=== PATIENT | female | born 1955 | race Caucasian/White ===

== ENCOUNTER 2017-05-31 03:08 | Inpatient (IN) | payer OTHER ==
[2017-05-31 03:31] LABS: URINE BLOOD (Dip) POC 2+ (NEGATIVE); URINE GLUCOSE (Dip) POC Negative (NEGATIVE); URINE KETONES (Dip) POC Negative (NEGATIVE); URINE LEUKOCYTE EST (Dip) POC 3+ (NEGATIVE); URINE NITRITE (Dip) POC Negative (NEGATIVE); URINE TOTAL PROTEIN POC 1+ (NEGATIVE)
[2017-05-31] MEDS: SOD CHLORIDE 0.9% 1,000 ML IV (03:44)
[2017-05-31] MEDS: ONDANSETRON 4 MG INJ IV (03:44)
[2017-05-31] MEDS: morphine 4 MG/ML VIAL IV (03:44)
[2017-05-31] MEDS: HYDROmorphONE 1 MG/ML SYG IV ×2 (04:11→06:14)
[2017-05-31 04:12] LABS: ADD MAN DIFF? NO
[2017-05-31 04:14] LABS: WHITE BLOOD COUNT 13.4 10^3/ul (4.8-10.8)
[2017-05-31 04:14] LABS: BASOPHILS % 0.1 % (0.0-2.0); EOSINOPHILS # 0.8 10^3/ul (0.0-0.5); EOSINOPHILS % 5.9 % (0.0-7.0); HEMATOCRIT 40.2 % (37.0-47.0); HEMOGLOBIN 13.8 g/dl (12.0-16.0); LYMPHOCYTES # 1.6 10^3/ul (0.8-2.9); LYMPHOCYTES % 12.1 % (15.0-51.0); MEAN CORPUSCULAR HGB CONC 34.3 g/dl (32.0-37.0); MEAN CORPUSCULAR VOLUME 96.2 fl (82.0-101.0); MEAN PLATELET VOLUME 9.9 fl (7.4-10.4); MONOCYTE # 0.8 10^3/ul (0.3-0.9); MONOCYTES % 5.6 % (0.0-11.0); NEUTROPHIL # 10.1 10^3/ul (1.6-7.5); NEUTROPHILS % 75.8 % (39.0-77.0); PLATELET COUNT 236 10^3/UL (140-415); RED BLOOD COUNT 4.18 10^6/ul (4.20-5.40); RED CELL DISTRIBUTION WIDTH 11.9 % (11.5-14.5)
[2017-05-31 04:21] LABS: ADD UMIC YES; UR ASCORBIC ACID 40 mg/dL (NEGATIVE); UR BACTERIA FEW /HPF (NONE SEEN); UR BILIRUBIN (Dip) NEGATIVE (NEGATIVE); UR BLOOD (Dip) NEGATIVE (NEGATIVE); UR CLARITY CLOUDY (CLEAR); UR COLOR YELLOW (YELLOW); UR GLUCOSE (Dip) NEGATIVE (NEGATIVE); UR KETONES (Dip) NEGATIVE (NEGATIVE); UR LEUKOCYTE ESTERASE (Dip) 3+ Leu/ul (NEGATIVE); UR MUCUS FEW /HPF (NONE SEEN); UR NITRITE (Dip) NEGATIVE (NEGATIVE); UR RBC 18 /HPF (0-5); UR SQUAMOUS EPITHELIAL CELL FEW /HPF (FEW); UR TOTAL PROTEIN (Dip) 1+ mg/dl (NEGATIVE); UR UROBILINOGEN (Dip) 1+ mg/dL (NEGATIVE); UR WBC > 182 /HPF (0-5)
[2017-05-31 04:42] LABS: ALANINE AMINOTRANSFERASE 26 IU/L (13-69); ALBUMIN 4.4 g/dl (3.3-4.9); ALBUMIN/GLOBULIN RATIO 1.18; ALKALINE PHOSPHATASE 154 IU/L (42-121); ANION GAP 15 (8-16); ASPARTATE AMINO TRANSFERASE 24 IU/L (15-46); BILIRUBIN,INDIRECT 0.4 mg/dl (0-1.1); BILIRUBIN,TOTAL 0.4 mg/dl (0.2-1.3); BLOOD UREA NITROGEN 15 mg/dl (7-20); CALCIUM 9.3 mg/dl (8.4-10.2); CARBON DIOXIDE 29 mmol/L (21-31); CHLORIDE 100 mmol/L (97-110); CREATININE 0.87 mg/dl (0.44-1.00); GLUCOSE 177 mg/dl (70-220); LIPASE 36 U/L (23-300); POTASSIUM 3.9 mmol/L (3.5-5.1); SODIUM 140 mmol/L (135-144); TOTAL PROTEIN 8.1 g/dl (6.1-8.1)
[2017-05-31 04:43] LABS: LACTIC ACID 2.3 mmol/L (0.5-2.0)
[2017-05-31] MEDS: KETOROLAC 30 MG INJ IV (04:51)
[2017-05-31] MEDS: CEFTRIAXONE 1 GM/50 ML (PMX) 50 ML IVPB (05:17)
[2017-05-31] MEDS ORDERED: ONDANSETRON 4 MG INJ IV ×2 (06:00→10:30)
[2017-05-31] MEDS ORDERED: ACETAMINOPHEN 325 MG TAB PO (06:00)
[2017-05-31] MEDS: SODIUM CHLORIDE 0.9% 1L BAG IV* (06:14)
[2017-05-31 06:40] LABS: LACTIC ACID 1.9 mmol/L (0.5-2.0)
[2017-05-31] MEDS ORDERED: HYDROCODONE/APAP (5/325) TAB PO (10:30)
[2017-05-31] MEDS ORDERED: morphine 2 MG INJ IV (10:30)
[2017-05-31] MEDS ORDERED: ZOLPIDEM 5 MG TAB PO (10:30)
[2017-05-31 11:32] LABS: LACTIC ACID 1.3 mmol/L (0.5-2.0)
[2017-05-31 11:35] LABS: INR 1.03; PROTIME 13.6 Sec (11.9-14.9); PT RATIO 1.1
[2017-05-31 11:36] LABS: PARTIAL THROMBOPLASTIN TIME 29.3 Sec (25.0-35.0)
[2017-05-31] MEDS: DEXTROSE 5%-0.45% NACL 1,000 ML IV ×3 (12:09→21:14)
[2017-05-31] MEDS ORDERED: PENDING SANTYL ORDER FOR WOUND CARE XX (13:00)
[2017-05-31] MEDS: ACETAMINOPHEN 325 MG TAB PO (17:45)
[2017-05-31] MEDS: ATORVASTATIN 10 MG TAB PO (21:14)
[2017-05-31] MEDS: FAMOTIDINE 20 MG INJ IV (21:14)
[2017-05-31] MEDS: MONTELUKAST 10 MG TAB PO (21:14)
[2017-06-01] MEDS: DEXTROSE 5%-0.45% NACL 1,000 ML IV ×3 (02:10→18:10)
[2017-06-01] MEDS: ACETAMINOPHEN 325 MG TAB PO ×2 (02:38→08:20)
[2017-06-01] MEDS: CEFTRIAXONE 1 GM/50 ML (PMX) 50 ML IVPB (05:15)
[2017-06-01 06:13] LABS: ADD MAN DIFF? NO
[2017-06-01 06:36] LABS: WHITE BLOOD COUNT 9.4 10^3/ul (4.8-10.8)
[2017-06-01 06:36] LABS: BASOPHILS % 0.2 % (0.0-2.0); EOSINOPHILS # 0.2 10^3/ul (0.0-0.5); EOSINOPHILS % 1.9 % (0.0-7.0); HEMATOCRIT 34.3 % (37.0-47.0); HEMOGLOBIN 11.4 g/dl (12.0-16.0); LYMPHOCYTES # 0.6 10^3/ul (0.8-2.9); LYMPHOCYTES % 6.6 % (15.0-51.0); MEAN CORPUSCULAR HEMOGLOBIN 32.9 pg (29.0-33.0); MEAN CORPUSCULAR HGB CONC 33.2 g/dl (32.0-37.0); MEAN CORPUSCULAR VOLUME 98.8 fl (82.0-101.0); MEAN PLATELET VOLUME 10.1 fl (7.4-10.4); MONOCYTE # 0.5 10^3/ul (0.3-0.9); NEUTROPHILS % 85.8 % (39.0-77.0); PLATELET COUNT 130 10^3/UL (140-415); RED BLOOD COUNT 3.47 10^6/ul (4.20-5.40); RED CELL DISTRIBUTION WIDTH 12.7 % (11.5-14.5)
[2017-06-01 07:22] LABS: HEMOGLOBIN A1C 5.4 % (0-5.9)
[2017-06-01 07:28] LABS: ALANINE AMINOTRANSFERASE 48 IU/L (13-69); ALBUMIN 2.9 g/dl (3.3-4.9); ALBUMIN/GLOBULIN RATIO 0.87; ALKALINE PHOSPHATASE 131 IU/L (42-121); ANION GAP 9 (8-16); ASPARTATE AMINO TRANSFERASE 48 IU/L (15-46); BILIRUBIN,INDIRECT 0.6 mg/dl (0-1.1); BILIRUBIN,TOTAL 0.6 mg/dl (0.2-1.3); BLOOD UREA NITROGEN 14 mg/dl (7-20); CALCIUM 8.2 mg/dl (8.4-10.2); CARBON DIOXIDE 27 mmol/L (21-31); CHLORIDE 106 mmol/L (97-110); CHOL/HDL RATIO 3.1 RATIO; CHOLESTEROL 90 mg/dl (100-200); GLUCOSE 137 mg/dl (70-220); HDL CHOLESTEROL 29 mg/dl (35-98); LDL CHOLESTEROL,CALCULATED 45 mg/dl; MAGNESIUM 1.6 mg/dl (1.7-2.5); PHOSPHORUS 3.1 mg/dl (2.5-4.9); POTASSIUM 4.1 mmol/L (3.5-5.1); SODIUM 138 mmol/L (135-144); TOTAL PROTEIN 6.2 g/dl (6.1-8.1); TRIGLYCERIDES 82 mg/dl (0-149)
[2017-06-01] MEDS: LEVOTHYROXINE 100 MCG TAB PO (08:20)
[2017-06-01] MEDS: FAMOTIDINE 20 MG INJ IV ×2 (08:20→20:24)
[2017-06-01] MEDS ORDERED: MIDAZOLAM 1 MG/ML 2 ML INJ (17:23)
[2017-06-01] MEDS ORDERED: CEFAZOLIN 1 GM INJ (17:23)
[2017-06-01] MEDS ORDERED: PROPOFOL 20 ML (17:23)
[2017-06-01] MEDS ORDERED: ROCURONIUM 50 MG INJ (17:23)
[2017-06-01] MEDS ORDERED: FENTAnyl 50 MCG/ML VIAL (17:23)
[2017-06-01] MEDS ORDERED: MEROPENEM 1 GM/50ML(PMX) 50 ML IVPB (17:30)
[2017-06-01] MEDS ORDERED: IOHEXOL 300MG/ML 30 ML BTL (17:45)
[2017-06-01] MEDS ORDERED: SUGAMMADEX SODIUM 200 MG/2 ML VIAL IV (18:20)
[2017-06-01] MEDS ORDERED: METOCLOPRAMIDE 10 MG INJ (18:20)
[2017-06-01] MEDS ORDERED: DEXAMETHASONE 4 MG/ML 1 ML INJ (18:20)
[2017-06-01] MEDS ORDERED: ONDANSETRON 4 MG INJ (18:20)
[2017-06-01] MEDS ORDERED: KETOROLAC 30 MG INJ (18:20)
[2017-06-01] MEDS ORDERED: MEPERIDINE 100 MG INJ (18:25)
[2017-06-01] MEDS ORDERED: MEPERIDINE 25 MG INJ IV (18:30)
[2017-06-01] MEDS ORDERED: hydrALAzine 20 MG INJ IV (18:30)
[2017-06-01] MEDS ORDERED: DIPHENHYDRAMINE 50 MG INJ IV (18:30)
[2017-06-01] MEDS ORDERED: LABETALOL HCL 20MG INJ IV (18:30)
[2017-06-01] MEDS ORDERED: ALBUMIN HUMAN 5% 250 ML IV (18:30)
[2017-06-01] MEDS ORDERED: ONDANSETRON 4 MG INJ IV (18:30)
[2017-06-01] MEDS ORDERED: EPHEDrine SULFATE 50 MG/5 ML SYG IV (18:30)
[2017-06-01] MEDS ORDERED: METOCLOPRAMIDE 10 MG INJ IV (18:30)
[2017-06-01] MEDS ORDERED: morphine (1 MG/ML) 10ML SYRINGE IV ×3 (18:30)
[2017-06-01] MEDS ORDERED: FENTAnyl 50 MCG/ML VIAL IV ×3 (18:30)
[2017-06-01] MEDS ORDERED: NALOXONE (0.4 MG/ML) INJ (18:33)
[2017-06-01] MEDS: ACETAMINOPHEN 1000MG/100ML IV 100 ML IVPB (19:28)
[2017-06-01] MEDS: CEFEPIME 1GM/50 ML (PMX) 50 ML IVPB (20:24)
[2017-06-01] MEDS: ATORVASTATIN 10 MG TAB PO (20:24)
[2017-06-01] MEDS: MONTELUKAST 10 MG TAB PO (20:24)
[2017-06-01] MEDS: MAGNESIUM SULFATE 2 GM/50 ML 50 ML IVPB (21:26)
[2017-06-02] MEDS: DEXTROSE 5%-0.45% NACL 1,000 ML IV ×5 (02:10→19:11)
[2017-06-02 06:24] LABS: ADD MAN DIFF? NO
[2017-06-02 06:33] LABS: WHITE BLOOD COUNT 5.8 10^3/ul (4.8-10.8)
[2017-06-02 06:33] LABS: ABNORMAL IP MESSAGE 1; BASOPHILS % 0.3 % (0.0-2.0); EOSINOPHILS % 0.2 % (0.0-7.0); HEMATOCRIT 32.5 % (37.0-47.0); HEMOGLOBIN 10.7 g/dl (12.0-16.0); LYMPHOCYTES # 0.5 10^3/ul (0.8-2.9); LYMPHOCYTES % 9.2 % (15.0-51.0); MEAN CORPUSCULAR HEMOGLOBIN 32.5 pg (29.0-33.0); MEAN CORPUSCULAR HGB CONC 32.9 g/dl (32.0-37.0); MEAN CORPUSCULAR VOLUME 98.8 fl (82.0-101.0); MEAN PLATELET VOLUME 10.8 fl (7.4-10.4); MONOCYTE # 0.2 10^3/ul (0.3-0.9); MONOCYTES % 3.5 % (0.0-11.0); NEUTROPHILS % 86.5 % (39.0-77.0); PLATELET COUNT 108 10^3/UL (140-415); RED BLOOD COUNT 3.29 10^6/ul (4.20-5.40); RED CELL DISTRIBUTION WIDTH 12.6 % (11.5-14.5)
[2017-06-02] MEDS: LEVOTHYROXINE 100 MCG TAB PO (06:33)
[2017-06-02 06:56] LABS: POSITIVE DIFF @See below
[2017-06-02 07:34] LABS: ANION GAP 14 (8-16); BLOOD UREA NITROGEN 15 mg/dl (7-20); CALCIUM 8.5 mg/dl (8.4-10.2); CARBON DIOXIDE 26 mmol/L (21-31); CHLORIDE 109 mmol/L (97-110); CREATININE 0.75 mg/dl (0.44-1.00); GLUCOSE 236 mg/dl (70-220); MAGNESIUM 2.6 mg/dl (1.7-2.5); POTASSIUM 4.1 mmol/L (3.5-5.1); SODIUM 145 mmol/L (135-144)
[2017-06-02] MEDS: FAMOTIDINE 20 MG INJ IV ×2 (08:44→20:40)
[2017-06-02] MEDS: CEFEPIME 1GM/50 ML (PMX) 50 ML IVPB (16:39)
[2017-06-02] MEDS: ATORVASTATIN 10 MG TAB PO (20:40)
[2017-06-02] MEDS: MONTELUKAST 10 MG TAB PO (20:40)
[2017-06-03] MEDS: DOCUSATE SODIUM 100 MG CAP PO (02:14)
[2017-06-03] MEDS: DEXTROSE 5%-0.45% NACL 1,000 ML IV ×2 (05:59→08:31)
[2017-06-03] MEDS: LEVOTHYROXINE 100 MCG TAB PO (05:59)
[2017-06-03 06:09] LABS: ADD MAN DIFF? NO
[2017-06-03 06:15] LABS: BASOPHILS % 0.3 % (0.0-2.0); EOSINOPHILS # 0.2 10^3/ul (0.0-0.5); EOSINOPHILS % 2.5 % (0.0-7.0); HEMOGLOBIN 10.3 g/dl (12.0-16.0); LYMPHOCYTES # 1.1 10^3/ul (0.8-2.9); LYMPHOCYTES % 16.8 % (15.0-51.0); MEAN CORPUSCULAR HEMOGLOBIN 32.4 pg (29.0-33.0); MEAN CORPUSCULAR HGB CONC 33.2 g/dl (32.0-37.0); MEAN CORPUSCULAR VOLUME 97.5 fl (82.0-101.0); MEAN PLATELET VOLUME 10.6 fl (7.4-10.4); MONOCYTE # 0.4 10^3/ul (0.3-0.9); MONOCYTES % 6.5 % (0.0-11.0); NEUTROPHIL # 4.6 10^3/ul (1.6-7.5); NEUTROPHILS % 73.7 % (39.0-77.0); PLATELET COUNT 166 10^3/UL (140-415); RED BLOOD COUNT 3.18 10^6/ul (4.20-5.40); RED CELL DISTRIBUTION WIDTH 12.7 % (11.5-14.5)
[2017-06-03 06:15] LABS: WHITE BLOOD COUNT 6.3 10^3/ul (4.8-10.8)
[2017-06-03 06:53] LABS: ALANINE AMINOTRANSFERASE 62 IU/L (13-69); ALBUMIN 3.1 g/dl (3.3-4.9); ALKALINE PHOSPHATASE 153 IU/L (42-121); ANION GAP 14 (8-16); ASPARTATE AMINO TRANSFERASE 44 IU/L (15-46); BILIRUBIN,INDIRECT 0.1 mg/dl (0-1.1); BILIRUBIN,TOTAL 0.1 mg/dl (0.2-1.3); BLOOD UREA NITROGEN 11 mg/dl (7-20); CALCIUM 8.4 mg/dl (8.4-10.2); CARBON DIOXIDE 27 mmol/L (21-31); CHLORIDE 107 mmol/L (97-110); CREATININE 0.65 mg/dl (0.44-1.00); GLUCOSE 142 mg/dl (70-220); MAGNESIUM 1.8 mg/dl (1.7-2.5); PHOSPHORUS 1.9 mg/dl (2.5-4.9); SODIUM 144 mmol/L (135-144); TOTAL PROTEIN 6.2 g/dl (6.1-8.1)
[2017-06-03] MEDS: FAMOTIDINE 20 MG INJ IV ×2 (08:42→20:23)
[2017-06-03] MEDS: LEVOFLOXACIN 500 MG TAB PO (12:43)
[2017-06-03] MEDS: ATORVASTATIN 10 MG TAB PO (20:23)
[2017-06-03] MEDS: MONTELUKAST 10 MG TAB PO (20:23)
[2017-06-04] MEDS: LEVOTHYROXINE 100 MCG TAB PO (06:08)
[2017-06-04] MEDS: LEVOFLOXACIN 500 MG TAB PO (06:08)
[2017-06-04] MEDS: FAMOTIDINE 20 MG TAB PO (10:07)
== END 2017-06-04 17:25 | disposition home or self-care (01) | DRG 690 ==
LOC: E/R 03:08 → MS2 05:50
PROVIDERS: Internal Medicine
PROC: 0T778DZ Dilation of Left Ureter with Intraluminal Device, Via Natural or Artificial Opening Endoscopic (ICD-10-PCS; principal; 2017-06-01 17:30)
DX: N13.6 Pyonephrosis (principal); E87.2 Acidosis; K76.0 Fatty (change of) liver, not elsewhere classified; N30.90 Cystitis, unspecified without hematuria; E83.42 Hypomagnesemia; E03.9 Hypothyroidism, unspecified; E78.5 Hyperlipidemia, unspecified; L30.9 Dermatitis, unspecified
CPT/HCPCS: 36415; 71045; 71250; 74018; 74176; 74430; 80048; 80053; 80061; 81001; 81003; 83036; 83605; 83690; 83735; 84100; 84443; 85025; 85610; 85730; 87040; 87086; 93005; 96374; 96375; 96376; 99285-25

== ENCOUNTER 2017-08-04 09:54 | Day surgery (SDC) | payer OTHER ==
[2017-08-04] MEDS: CIPROFLOXACIN 400MG/D5W 200 ML IVPB (11:35)
[2017-08-04] MEDS ORDERED: ONDANSETRON 4 MG INJ IV ×2 (13:00→15:00)
[2017-08-04] MEDS ORDERED: HYDROmorphONE (0.2 MG/ML) 10ML SYG IV ×3 (13:00)
[2017-08-04] MEDS ORDERED: OXYCODONE/ACETAMINOPHEN (5/325) TAB PO ×2 (13:00)
[2017-08-04] MEDS ORDERED: MIDAZOLAM 1 MG/ML 2 ML INJ (13:05)
[2017-08-04] MEDS ORDERED: PROPOFOL 20 ML (13:05)
[2017-08-04] MEDS ORDERED: ONDANSETRON 4 MG INJ (13:05)
[2017-08-04] MEDS ORDERED: METOCLOPRAMIDE 10 MG INJ (13:06)
[2017-08-04] MEDS ORDERED: FENTAnyl 50 MCG/ML VIAL (13:13)
[2017-08-04] MEDS ORDERED: FUROSEMIDE 20 MG INJ (14:00)
[2017-08-04 14:36] LABS: ADD UMIC YES; UR ASCORBIC ACID NEGATIVE (NEGATIVE); UR BACTERIA FEW /HPF (NONE SEEN); UR BILIRUBIN (Dip) NEGATIVE (NEGATIVE); UR BLOOD (Dip) 3+ mg/dL (NEGATIVE); UR CLARITY CLEAR (CLEAR); UR COLOR RED (YELLOW); UR GLUCOSE (Dip) NEGATIVE (NEGATIVE); UR KETONES (Dip) NEGATIVE (NEGATIVE); UR LEUKOCYTE ESTERASE (Dip) 1+ Leu/ul (NEGATIVE); UR NITRITE (Dip) NEGATIVE (NEGATIVE); UR RBC > 182 /HPF (0-5); UR SPECIFIC GRAVITY (Dip) 1.008 (1.003-1.030); UR TOTAL PROTEIN (Dip) 2+ mg/dl (NEGATIVE); UR UROBILINOGEN (Dip) NEGATIVE (NEGATIVE); UR WBC 22 /HPF (0-5)
[2017-08-04] MEDS ORDERED: HYDROCODONE/APAP (5/325) TAB PO (15:00)
== END 2017-08-04 16:25 | disposition home or self-care (01) ==
LOC: SDS 09:54
DX: N20.0 Calculus of kidney (principal); E03.9 Hypothyroidism, unspecified; E78.5 Hyperlipidemia, unspecified; J45.909 Unspecified asthma, uncomplicated
CPT/HCPCS: 52356; 71045; 81001; 87086; 93005

== ENCOUNTER 2017-11-18 14:05 | Emergency (ER) | payer OTHER ==
[2017-11-18] MEDS: IBUPROFEN 600 MG TAB PO (14:24)
[2017-11-18] MEDS: traMADol 50 MG TAB PO (14:25)
== END 2017-11-18 18:05 | disposition home or self-care (01) ==
LOC: FTE 14:05
DX: M84.359A Stress fracture, hip, unspecified, initial encounter for fracture (principal); J45.909 Unspecified asthma, uncomplicated
CPT/HCPCS: 73510; 73700; 99284-25

== ENCOUNTER 2018-01-11 17:15 | Emergency (ER) | payer OTHER ==
[2018-01-11 18:01] LABS: ADD MAN DIFF? NO
[2018-01-11] MEDS: CEFEPIME 2GM/50 ML (PMX) 50 ML IVPB (18:04)
[2018-01-11] MEDS: SODIUM CHLORIDE 0.9% 1L BAG IV* (18:05)
[2018-01-11] MEDS: ACETAMINOPHEN 325 MG TAB PO (18:05)
[2018-01-11 18:06] LABS: WHITE BLOOD COUNT 10.6 10^3/ul (4.8-10.8)
[2018-01-11 18:06] LABS: BASOPHILS % 0.4 % (0.0-2.0); EOSINOPHILS # 0.2 10^3/ul (0.0-0.5); HEMATOCRIT 43.6 % (37.0-47.0); HEMOGLOBIN 14.2 g/dl (12.0-16.0); LYMPHOCYTES # 1.6 10^3/ul (0.8-2.9); LYMPHOCYTES % 14.8 % (15.0-51.0); MEAN CORPUSCULAR HEMOGLOBIN 32.5 pg (29.0-33.0); MEAN CORPUSCULAR HGB CONC 32.6 g/dl (32.0-37.0); MEAN CORPUSCULAR VOLUME 99.8 fl (82.0-101.0); MEAN PLATELET VOLUME 9.2 fl (7.4-10.4); MONOCYTE # 0.7 10^3/ul (0.3-0.9); MONOCYTES % 6.5 % (0.0-11.0); NEUTROPHIL # 8.1 10^3/ul (1.6-7.5); NEUTROPHILS % 75.5 % (39.0-77.0); PLATELET COUNT 308 10^3/UL (140-415); RED BLOOD COUNT 4.37 10^6/ul (4.20-5.40); RED CELL DISTRIBUTION WIDTH 12.4 % (11.5-14.5)
[2018-01-11 18:16] LABS: ADD UMIC YES; UR ASCORBIC ACID NEGATIVE (NEGATIVE); UR BACTERIA FEW /HPF (NONE SEEN); UR BILIRUBIN (Dip) NEGATIVE (NEGATIVE); UR BLOOD (Dip) NEGATIVE (NEGATIVE); UR CLARITY CLEAR (CLEAR); UR COLOR YELLOW (YELLOW); UR GLUCOSE (Dip) NEGATIVE (NEGATIVE); UR KETONES (Dip) NEGATIVE (NEGATIVE); UR LEUKOCYTE ESTERASE (Dip) 3+ Leu/ul (NEGATIVE); UR NITRITE (Dip) NEGATIVE (NEGATIVE); UR RBC 1 /HPF (0-5); UR SPECIFIC GRAVITY (Dip) 1.011 (1.003-1.030); UR TOTAL PROTEIN (Dip) NEGATIVE (NEGATIVE); UR UROBILINOGEN (Dip) NEGATIVE (NEGATIVE); UR WBC 15 /HPF (0-5)
[2018-01-11 18:21] LABS: INR 0.86; PROTIME 11.8 Sec (11.9-14.9); PT RATIO 0.9
[2018-01-11 18:22] LABS: PARTIAL THROMBOPLASTIN TIME 29.2 Sec (23.0-35.0)
[2018-01-11 18:28] LABS: LACTIC ACID 1.6 mmol/L (0.5-2.0)
[2018-01-11 18:29] LABS: ANION GAP 10 (8-16); BLOOD UREA NITROGEN 11 mg/dl (7-20); CALCIUM 8.9 mg/dl (8.4-10.2); CARBON DIOXIDE 31 mmol/L (21-31); CHLORIDE 100 mmol/L (97-110); CREATININE 0.66 mg/dl (0.44-1.00); GLUCOSE 125 mg/dl (70-220); POTASSIUM 4.1 mmol/L (3.5-5.1); SODIUM 137 mmol/L (135-144)
[2018-01-11 18:40] LABS: TROPONIN-I < 0.012 ng/ml (0.000-0.120)
[2018-01-11] MEDS ORDERED: CEPHALEXIN 500 MG CAP PO (19:00)
[2018-01-11] MEDS: VANCOMYCIN 1 GM (PMX) 250 ML IVPB (19:09)
== END 2018-01-11 19:42 | disposition home or self-care (01) ==
LOC: E/R 17:15
DX: N30.90 Cystitis, unspecified without hematuria (principal); J45.909 Unspecified asthma, uncomplicated; R07.9 Chest pain, unspecified
CPT/HCPCS: 36415; 71045; 80048; 81001; 83605; 84484; 85025; 85610; 85730; 87040; 87086; 87400; 93005; 96374; 96375; 99285-25

== ENCOUNTER 2018-04-10 14:57 | Emergency (ER) | payer OTHER | END 2018-04-10 19:59 | disposition home or self-care (01) | LOC: FTE 14:57 | DX: J06.9 Acute upper respiratory infection, unspecified (principal); J45.909 Unspecified asthma, uncomplicated | CPT/HCPCS: 99282; Z7502 ==

== ENCOUNTER 2018-04-17 11:45 | Emergency (ER) | payer OTHER ==
[2018-04-17] MEDS: KETOROLAC 30 MG INJ IM (12:33)
[2018-04-17] MEDS: DEXAMETHASONE 4 MG TAB PO (12:33)
[2018-04-17] MEDS: ALBUTEROL 0.083% (NEB) 2.5 MG/3 ML AMP HHN ×2 (12:59→15:36)
[2018-04-17] MEDS: IPRATROPIUM (NEB) 0.5 MG/2.5 ML AMP HHN (13:00)
[2018-04-17] MEDS: SODIUM CHLORIDE 0.9% 1L BAG IV* (14:18)
[2018-04-17 14:20] LABS: ADD MAN DIFF? NO
[2018-04-17 14:24] LABS: BASOPHILS % 0.3 % (0.0-2.0); EOSINOPHILS # 0.1 10^3/ul (0.0-0.5); HEMATOCRIT 41.7 % (37.0-47.0); HEMOGLOBIN 13.4 g/dl (12.0-16.0); LYMPHOCYTES # 0.8 10^3/ul (0.8-2.9); MEAN CORPUSCULAR HEMOGLOBIN 31.8 pg (29.0-33.0); MEAN CORPUSCULAR HGB CONC 32.1 g/dl (32.0-37.0); MEAN PLATELET VOLUME 9.4 fl (7.4-10.4); MONOCYTE # 0.3 10^3/ul (0.3-0.9); MONOCYTES % 3.7 % (0.0-11.0); NEUTROPHIL # 6.7 10^3/ul (1.6-7.5); NEUTROPHILS % 84.4 % (39.0-77.0); PLATELET COUNT 170 10^3/UL (140-415); RED BLOOD COUNT 4.21 10^6/ul (4.20-5.40); RED CELL DISTRIBUTION WIDTH 12.9 % (11.5-14.5)
[2018-04-17 14:24] LABS: WHITE BLOOD COUNT 7.9 10^3/ul (4.8-10.8)
[2018-04-17 14:54] LABS: ALANINE AMINOTRANSFERASE 47 IU/L (13-69); ALBUMIN 3.9 g/dl (3.3-4.9); ALBUMIN/GLOBULIN RATIO 1.11; ALKALINE PHOSPHATASE 136 IU/L (42-121); ANION GAP 12 (5-13); ASPARTATE AMINO TRANSFERASE 53 IU/L (15-46); BILIRUBIN,INDIRECT 0.7 mg/dl (0-1.1); BILIRUBIN,TOTAL 0.7 mg/dl (0.2-1.3); BLOOD UREA NITROGEN 11 mg/dl (7-20); CALCIUM 8.8 mg/dl (8.4-10.2); CARBON DIOXIDE 27 mmol/L (21-31); CHLORIDE 96 mmol/L (97-110); CREATININE 0.55 mg/dl (0.44-1.00); Estimated GFR > 60 mL/min (>60); GLUCOSE 122 mg/dl (70-220); SODIUM 135 mmol/L (135-144); TOTAL PROTEIN 7.4 g/dl (6.1-8.1)
[2018-04-17] MEDS: METHYLPREDNISOLONE 125 MG INJ IV (15:55)
[2018-04-17] MEDS: OSELTAMIVIR 75 MG CAP PO (15:56)
[2018-04-17] MEDS: ACETAMINOPHEN 500 MG TAB PO (17:12)
== END 2018-04-17 17:29 | disposition home or self-care (01) ==
LOC: FTE 11:45
DX: J09.X2 Influenza due to identified novel influenza A virus with other respiratory manifestations (principal); J45.909 Unspecified asthma, uncomplicated
CPT/HCPCS: 36415; 71045; 80053; 83605; 85025; 87040; 87400; 94644; 94664; 96372; 96374; 99285-25

== ENCOUNTER 2018-06-13 15:13 | Emergency (ER) | payer OTHER ==
[2018-06-13] MEDS: ACETAMINOPHEN 500 MG TAB PO (22:18)
== END 2018-06-14 00:04 | disposition home or self-care (01) ==
LOC: FTE 06-14 00:04
DX: J06.9 Acute upper respiratory infection, unspecified (principal); H66.93 Otitis media, unspecified, bilateral; J45.909 Unspecified asthma, uncomplicated
CPT/HCPCS: 87400; 99283

== ENCOUNTER 2018-06-27 12:58 | Emergency (ER) | payer OTHER | END 2018-06-27 15:46 | disposition home or self-care (01) | LOC: FTE 12:58 | DX: J02.9 Acute pharyngitis, unspecified (principal); J45.909 Unspecified asthma, uncomplicated | CPT/HCPCS: 99283; Z7502 ==

== ENCOUNTER 2018-12-01 14:53 | Emergency (ER) | payer OTHER ==
[2018-12-01] MEDS: IBUPROFEN 800 MG TAB PO (16:24)
== END 2018-12-01 16:51 | disposition home or self-care (01) ==
LOC: E/R 16:51
DX: S20.211A Contusion of right front wall of thorax, initial encounter (principal); J45.909 Unspecified asthma, uncomplicated; W01.0XXA Fall on same level from slipping, tripping and stumbling without subsequent striking against object, initial encounter; Y92.9 Unspecified place or not applicable
CPT/HCPCS: 71045; 71100; 99283-25